=== PATIENT | male | born 2000 | race Caucasian/White ===

== ENCOUNTER 2018-03-14 05:56 | Emergency (ER) | payer BC ==
[~2018-03-14] VITALS: Ht 172.7 cm; Wt 90.7 kg
[2018-03-14 05:59] VITALS: Ht 172.7 cm; Wt 90.7 kg
[2018-03-14 06:43] LABS: BASOPHIL % 0.3 % (0-2); RED CELL DISTRIBUTION WIDTH 12.9 % (11.5-14.5)
[2018-03-14 06:48] LABS: PLATELET COUNT 126 x10^3mcL (130-400)
[2018-03-14 07:11] LABS: CALCIUM 8.7 mg/dL (8.5-10.1); CARBON DIOXIDE 24.3 mmol/L (21-32); CHLORIDE SERUM 101 mmol/L (98-107); GFR1 > 60 mL/min; GLUCOSE SERUM 112 mg/dL (74-106); POTASSIUM SERUM 3.9 mmol/L (3.5-5.1); SODIUM SERUM 136 mmol/L (136-145)
[2018-03-14 07:13] LABS: ALKALINE PHOSPHATASE 95 U/L (46-116); ALT/SGPT 58 U/L (16-63); AST/SGOT 29 U/L (15-37); BILIRUBIN TOTAL 0.1 mg/dL (0.20-1.00)
[2018-03-14 07:24] LABS: TOTAL PROTEIN, SERUM 8.3 g/dL (6.4-8.2)
[2018-03-14 07:30] VITALS: BP 137/68
== END 2018-03-14 07:51 | disposition home or self-care (01) ==
LOC: ED 05:56
PROVIDERS: Emergency Medicine
DX: G40.909 Epilepsy, unspecified, not intractable, without status epilepticus (principal)
CPT/HCPCS: 36415